=== PATIENT | female | born 1945 | race Caucasian/White ===

== ENCOUNTER 2017-05-29 10:01 | Outpatient (CLI) | payer MEDICARE, BC ==
[2017-05-29 11:29] LABS: Prothrombin Time 13.2 SEC (12.0-14.7)
[2017-05-29 11:31] LABS: Bilirubin Negative (Negative); Blood, Urine Negative (Negative); Glucose, Urine (Dipstick) Negative (Negative); Ketone, Urine Negative (Negative); Nitrite Negative (Negative); Protein, Urine (Dipstick) Negative (Neg-Trace); Urobilinogen 0.2 mg/dL (0.2-1.0)
[2017-05-29 11:34] LABS: Bacteria/HPF None Seen HPF (None Seen); Hyaline Casts/LPF 0-3 HYALINE CAST LPF (0-3 Hyaline); RBC/HPF 0-3 HPF (0-3); Squamous Epithelial None Seen HPF (0-3); WBC/HPF None Seen HPF (0-3)
[2017-05-29 11:35] LABS: Anion Gap 14 mmol/L (10-20); BUN (Urea Nitrogen) 8 mg/dL (9.8-20.1); Calc. Creatinine Clearance 0 mL/min (70-130); Carbon Dioxide 27 mmol/L (23-31); Chloride 104 mmol/L (98-107); Estimated GFR-MDRD 75
[2017-05-29 11:50] LABS: #Basophils 0.1 thou/uL (0.0-0.2); #Eosinphils 0.2 thou/uL (0.0-0.7); #Lymphocytes 1.9 thou/uL (1.20-3.40); #Monocytes 0.5 thou/uL (0.11-0.59); #Neutrophils 4.6 thou/uL (1.40-6.50); %Eosinophils 2.2 % (0.0-10.0); %Lymphocytes 26.1 % (21.0-51.0); %Monocytes 7.2 % (0.0-10.0); Mean Platelet Volume 8.3 fL (7.4-10.4); Red Blood Cell (RBC) Count 4.99 mill/uL (4.20-5.40); White Blood Cell (WBC) Count 7.3 thou/uL (4.8-10.8)
--- NOTE | 2017-05-29 12:05 | RAD ---
TWO VIEWS OF THE CHEST: COMPARISON: None. HISTORY: Preoperative radiograph. FINDINGS: Two views of the chest show normal sized cardiomediastinal silhouette. There is no evidence of conso lidation, mass, or pleural effusion. The bones are unremarkable. IMPRESSION: No evidence of acute cardiopulmonary disease. POS: [facility]
== END 2017-05-29 10:02 | disposition home or self-care (01) ==
LOC: LABBT 10:01
PROVIDERS: ATTEND Orthopaedic Surgery Hand Surgery
DX: Z01.818 Encounter for other preprocedural examination (principal); M20.022 Boutonniere deformity of left finger(s)
CPT/HCPCS: 71020; 80048; 81001; 85025; 85610; 93005; 93010

== ENCOUNTER 2017-06-02 09:17 | Day surgery (SDC) | payer MEDICARE, BC ==
[2017-05-29 10:20] VITALS: BMI 19.5
[2017-06-02] MEDS ORDERED: Bupivacaine PF 0.5% 30 ML VIAL ONE (14:48)
[2017-06-02] MEDS ORDERED: Bacitracin Zinc Ointment 30 gm TUBE ONE (14:48)
[2017-06-02] MEDS ORDERED: Sodium Chloride 0.9% 10 ML ONE (14:48)
[2017-06-02] MEDS ORDERED: Fentanyl 100 MCG/2 ML VIAL ONE (15:00)
[2017-06-02] MEDS ORDERED: Midazolam HCl 2 mg/2 ml Vial ONE (15:00)
[2017-06-02] MEDS ORDERED: Dexamethasone 20 MG/5 ML VIAL ONE (15:15)
[2017-06-02] MEDS ORDERED: PHENYLEPHRINE-NS 100 MCG/ML 10 ML SYRINGE ONE (15:15)
[2017-06-02] MEDS ORDERED: Propofol 200 MG/20 ML VIAL ONE (15:15)
[2017-06-02] MEDS ORDERED: Lidocaine 1% PF 5 ML VIAL ONE (15:15)
[2017-06-02] MEDS ORDERED: ePHEDrine/0.9% NaCl/PF SYRINGE 50 mg/10 ml ONE (15:15)
[2017-06-02] MEDS ORDERED: Ondansetron HCl/PF 4 MG/2 ML Vial ONE (15:15)
--- NOTE | 2017-06-02 20:02 | RAD ---
FINGERS LEFT HAND: 06/02/17 A single fluoroscopic image obtained in OR. INDICATIONS: Intraoperative imaging during internal fixation. FINDINGS/IMPRESSION: A single digit of the left hand is imaged laterally. Cannot determine with certainty if this surface density is second or third digit. Metallic pin enters distally and transfixes the distal phalanx, m iddle phalanx, and proximal phalanx as seen in this single lateral projection. POS: [facility]
--- NOTE | 2017-06-03 07:01 | OP ---
DATE OF PROCEDURE: 06/02/2017 PREOPERATIVE DIAGNOSIS: Left long finger extensor tendon injury, zone 3 with boutonniere and possib le secondary mallet finger. POSTOPERATIVE DIAGNOSIS: Left long finger extensor tendon injury, zone 3 with boutonniere and possi ble secondary mallet finger. FINDINGS: 1. As above. 2. Very flexible with large stretch attenuation including: A. Sagittal bands without sagittal band palmar migration. B. Joint contracture of approximately -25 degrees requiring joint release. PROCEDURE PERFORMED: 1. Arthrotomy with excision of redundant tissue and primary repair of extensor mechanism. 2. Arthrotomy with pinning of joint after open reduction. 3. Arthrotomy with palmar capsulotomy and volar plate release midline without neurovascular damage. COMPLICATIONS: None. TOURNIQUET TIME: 14 minutes. ESTIMATED BLOOD LOSS: 2 mL INJECTABLE: Yes, 12 mL 0.5% Marcaine during the procedure. ANESTHESIA: General LMA technique, Bulgarian Anesthesia. DESCRIPTION OF PROCEDURE: After successful general LMA technique, the limb was prepped and draped. Time was then performed. Block was given at the fingers described above. The patient had a zigzag incision outlined over the extensor mechanism and the limb was exsanguinated, tourniquet inflated, and a timeout was done. We carried the incision through the skin and subcutaneous tissue until we f ound the findings listed \\\\"postop findings below\\\\". We then flexed the joint 120 degrees and perf ormed the arthrotomy, excised 2 mm area of the redundant capsule and extensor mechanism. We then re leased the joint through the dorsal arthrotomy palmarly with flexion of 95 degrees ensuring we staye d in midline, did not stray towards neurovascular bundle. Then, we were able to extend the finger t hat had passive extension previously at -30 degrees and now was +5. We then held the joint, reduced , pinned the joint with a 0.45 K-wire bent and cut at the level of the skin. We used a 4-0 Prolene once we resected a 2.5 mm area of the extensor mechanism to restore its normal tension, and this was done in a buried [id number] fashion. Tourniquet was deflated. Hemostasis obtained. C-arm co nfirmed the position of K-wire to be excellent, cut the K-wire and bent it with only 1 mm protruding . The patient then had the final wound closed with interrupted 4-0 nylon by the household assistant. The bul ky dressing was applied and that included a mallet finger splint with protection.
== END 2017-06-02 18:05 | disposition home or self-care (01) ==
LOC: SDC 09:17
PROVIDERS: ATTEND Orthopaedic Surgery Hand Surgery
PROC: 0LQ80ZZ Repair Left Hand Tendon, Open Approach (ICD-10-PCS; principal; 2017-06-02)
DX: M20.022 Boutonniere deformity of left finger(s) (principal); Z88.6 Allergy status to analgesic agent; Z90.710 Acquired absence of both cervix and uterus; Z98.890 Other specified postprocedural states
CPT/HCPCS: 76001; A4216; J0131; J1100; J2001; J2250; J2405; J2704; J3010; J3490; S0020

== ENCOUNTER 2017-09-04 06:02 | Day surgery (SDC) | payer MEDICARE, BC ==
[2017-09-03 12:43] VITALS: BMI 19.5
[2017-09-04] MEDS ORDERED: CEFAZOLIN/Water 2 GM/20 ML SYRINGE ONE (06:26)
[2017-09-04] MEDS ORDERED: Bacitracin Zinc Ointment 30 gm TUBE ONE (06:31)
[2017-09-04] MEDS ORDERED: Bupivacaine PF 0.5% 30 ML VIAL ONE (06:31)
[2017-09-04 06:50] LABS: #Basophils 0.1 thou/uL (0.0-0.2); #Eosinphils 0.3 thou/uL (0.0-0.7); #Lymphocytes 2.3 thou/uL (1.20-3.40); #Monocytes 0.6 thou/uL (0.11-0.59); #Neutrophils 3.2 thou/uL (1.40-6.50); %Basophils 1.7 % (0.0-1.0); %Eosinophils 4.1 % (0.0-10.0); %Lymphocytes 35.6 % (21.0-51.0); %Monocytes 9.3 % (0.0-10.0); %Neutrophils 49.3 % (42.0-75.0); Hemoglobin 14.7 g/dL (12.0-16.0); Mean Corpuscular HGB CONC 34.6 g/dL (32.0-36.0); Mean Corpuscular Hemoglobin 33.6 pg (27.0-31.0); Mean Corpuscular Volume 97.1 fl (81.0-99.0); Mean Platelet Volume 7.1 fL (7.4-10.4); Platelet Count 293 thou/uL (130-400); RBC Distribution Width 13.2 % (11.5-14.5); Red Blood Cell (RBC) Count 4.38 mill/uL (4.20-5.40); White Blood Cell (WBC) Count 6.6 thou/uL (4.8-10.8)
[2017-09-04] MEDS ORDERED: Diprivan 40 ML ONE (06:53)
--- NOTE | 2017-09-04 09:26 | OP ---
DATE OF SURGERY: 09/04/2017 SURGEON: Mingo Estrada M.D. PREOPERATIVE DIAGNOSES: Left long finger painful deep suture (previous extensor tendon repair more t cramer 3 months ago) with some joint contracture of motion intraoperative. POSTOPERATIVE DIAGNOSES: 1. Marked adherence of skin to the tendon repair, but no adherence to bone beneath. 2. Early suture granuloma seen around 2 of the sutures. PROCEDURE PERFORMED: 1. Excision of suture granuloma. 2. Removal of deep sutures in the extensor tendon. 3. Extensor tenolysis; separation of the tendon scar from the skin with no true adherence to bone an d excellent glide and healing of the tendon once sutures were removed. ANESTHESIA: Sedation with propofol with a 8 mL 0.5% metacarpophalangeal joint level block. DESCRIPTION OF PROCEDURE: After successful anesthesia as listed above, the patient was prepped and d raped. Timeout was done appropriately. We then waited 10 minutes after injection to inflate the jalen rniquet. After exsanguination of the limb to 250 mmHg pressure. This was then followed by using almost 80% of her previous incision length through skin and subcutane ous tissue medially, we could see 2 suture granulomas, 1 which was irritating the skin and about to p rotrude. We excised the granulomas which were approximately 3 mm x 3 mm each. Then, we totally libby pulated, lifted up the edge of the tendon and at the intersection on this radial side with the intrin sic just proximal to the joint, I saw there was no adhesions here and an excellent tendon glide. The marked adhesions were with the skin. We then this thick scar over the tendon healing from the skin scar, excised granulomas, then removed each suture individually. There was no blue Prolene suture remnants visible after this was accomplished. The irritation of the skin on 1 of the granulo mas was excised superficial as well. We released the tourniquet. We irrigated the area with 250 mL normal saline and then closed after he mostasis obtained with interrupted 5-0 nylon simple pattern. After this time, the patient went from passive motion of 75 degrees to 100 degrees without undue tightness or spring back at the PIP joint f or flexion. A bulky dressing was applied. She left the operating room without complication.
[2017-09-04] MEDS ORDERED: Lidocaine 1% PF 5 ML VIAL ONE (12:04)
[2017-09-04] MEDS ORDERED: Ondansetron HCl/PF 4 MG/2 ML Vial ONE (12:04)
== END 2017-09-04 09:15 | disposition home or self-care (01) ==
LOC: SDC 06:02
PROVIDERS: ATTEND Orthopaedic Surgery Hand Surgery
PROC: 0HBGXZZ Excision of Left Hand Skin, External Approach (ICD-10-PCS; principal; 2017-09-04)
PROC: 0LN80ZZ Release Left Hand Tendon, Open Approach (ICD-10-PCS; 2017-09-04)
DX: T81.89XA Other complications of procedures, not elsewhere classified, initial encounter (principal); L98.8 Other specified disorders of the skin and subcutaneous tissue; I10 Essential (primary) hypertension; E78.5 Hyperlipidemia, unspecified; G47.30 Sleep apnea, unspecified; Z79.899 Other long term (current) drug therapy; Z88.6 Allergy status to analgesic agent; Z90.710 Acquired absence of both cervix and uterus; Z90.722 Acquired absence of ovaries, bilateral; Z90.79 Acquired absence of other genital organ(s); Z98.890 Other specified postprocedural states; Z87.891 Personal history of nicotine dependence
CPT/HCPCS: 36415; 85025; J2001; J2405; J2704; S0020